=== PATIENT | male | born 2000 | race African-American/Black ===

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

== ENCOUNTER 2021-03-16 10:42 | Emergency (ER) | payer BC, OTHER ==
[2021-03-16 11:10] VITALS: BP 121/74; PULSE 84; TEMP 98.5; BMI 24.4
[2021-03-16] MEDS ORDERED: FAMOTIDINE 20 MG TABLET ONE (11:31)
[2021-03-16] MEDS ORDERED: MAG HYDROX/AL HYDROX/SIMETH -MYLANTA- ORAL SUSPENSION PO ONE (11:33)
[2021-03-16] MEDS ORDERED: PANTOPRAZOLE 20 MG TABLET PO ONE ×2 (11:33→11:36)
[2021-03-16] MEDS ORDERED: MAG HYDROX/AL HYDROX/SIMETH 30 ML UNIT-DOSE CUP ONE (11:36)
== END 2021-03-16 13:02 | disposition home or self-care (01) ==
LOC: JER 10:42
DX: K21.9 Gastro-esophageal reflux disease without esophagitis (principal)
CPT/HCPCS: 99284-25